=== PATIENT | female | born 1950 | race Caucasian/White ===

== ENCOUNTER → 2016-11-13 | Outpatient (CLI) | payer OTHER | LOC: HYPER 06:42 | DX: E11.621 Type 2 diabetes mellitus with foot ulcer (principal); L97.412 Non-pressure chronic ulcer of right heel and midfoot with fat layer exposed; I25.2 Old myocardial infarction; Z79.84 Long term (current) use of oral hypoglycemic drugs; Z79.4 Long term (current) use of insulin; E11.22 Type 2 diabetes mellitus with diabetic chronic kidney disease; N18.3 Chronic kidney disease, stage 3 (moderate); Z85.42 Personal history of malignant neoplasm of other parts of uterus; Z89.421 Acquired absence of other right toe(s) ==

== ENCOUNTER → 2016-11-19 | Outpatient (CLI) | payer OTHER | LOC: ULTRA 08:58 | DX: E11.621 Type 2 diabetes mellitus with foot ulcer (principal); I73.9 Peripheral vascular disease, unspecified; L97.412 Non-pressure chronic ulcer of right heel and midfoot with fat layer exposed ==

== ENCOUNTER → 2016-11-20 | Outpatient (CLI) | payer OTHER | LOC: HYPER 07:10 | DX: E11.621 Type 2 diabetes mellitus with foot ulcer (principal); L97.412 Non-pressure chronic ulcer of right heel and midfoot with fat layer exposed; E78.5 Hyperlipidemia, unspecified; I25.2 Old myocardial infarction; Z79.4 Long term (current) use of insulin; Z79.84 Long term (current) use of oral hypoglycemic drugs ==

== ENCOUNTER → 2016-11-26 | Outpatient (CLI) | payer OTHER ==
[~2016-11-26] VITALS: Ht 152.4 cm; Wt 102.1 kg
[~2016-11-26] MED LIST: ASPIR 8181 MG PO; BACTRIM DS TAB1 EACH PO; COLACE100 MG PO; DIFLUCAN200 MG PO; GLUCOPHAGE XR500 MG PO; LANTUS100 UNIT/M INJECTION; NOVOLOG100 UNIT/1 INJECTION; PLAVIX 75 MG TA75 M1 PO; ZINC OXIDE56.7 G1 TOP
[2016-11-26 07:11] VITALS: BP 129/37; BP 151/58
[2016-11-26 07:17] LABS: HEMATOCRIT 29.5 % (37.0-47.0); HEMOGLOBIN 9.7 gm/dL (12.0-15.0); MCH 26.3 pg (26.0-34.0); MCHC 32.7 g/dL (28.0-37.0); MCV 80.4 fL (80.0-100.0); RBC 3.68 mil/uL (4.20-5.00); RDW 16.4 % (10.5-14.5)
[2016-11-26 07:25] LABS: CALCIUM 9.8 mg/dL (8.5-10.1); CREATININE 2.1 mg/dL (0.6-1.0); POTASSIUM 5.8 mmol/L (3.5-5.1)
== END | disposition home or self-care (01) ==
LOC: LABMALL 06:29 → SPEC 06:29
PROVIDERS: Nuclear Medicine Nuclear Cardiology
DX: I70.239 Atherosclerosis of native arteries of right leg with ulceration of unspecified site (principal); I25.10 Atherosclerotic heart disease of native coronary artery without angina pectoris; E11.9 Type 2 diabetes mellitus without complications; Z85.42 Personal history of malignant neoplasm of other parts of uterus; E03.9 Hypothyroidism, unspecified; I21.3 ST elevation (STEMI) myocardial infarction of unspecified site; E66.9 Obesity, unspecified; E78.5 Hyperlipidemia, unspecified; I12.9 Hypertensive chronic kidney disease with stage 1 through stage 4 chronic kidney disease, or unspecified chronic kidney disease; N18.9 Chronic kidney disease, unspecified

== ENCOUNTER → 2016-11-27 | Outpatient (CLI) | payer OTHER | LOC: HYPER 07:10 | DX: E11.621 Type 2 diabetes mellitus with foot ulcer (principal); L97.412 Non-pressure chronic ulcer of right heel and midfoot with fat layer exposed; E11.51 Type 2 diabetes mellitus with diabetic peripheral angiopathy without gangrene; E11.22 Type 2 diabetes mellitus with diabetic chronic kidney disease; N18.3 Chronic kidney disease, stage 3 (moderate); L30.9 Dermatitis, unspecified; Z79.84 Long term (current) use of oral hypoglycemic drugs; Z79.4 Long term (current) use of insulin; Z85.828 Personal history of other malignant neoplasm of skin; I25.2 Old myocardial infarction; Z89.421 Acquired absence of other right toe(s) ==

== ENCOUNTER → 2016-11-27 | Outpatient (CLI) | payer OTHER | LOC: MRI 09:30 | DX: L97.412 Non-pressure chronic ulcer of right heel and midfoot with fat layer exposed (principal); E11.621 Type 2 diabetes mellitus with foot ulcer; L30.9 Dermatitis, unspecified ==

== ENCOUNTER 2016-12-09 14:45 | Inpatient (IN) | payer OTHER ==
[~2016-12-09] VITALS: Ht 152.4 cm; Wt 98.8 kg
--- NOTE | ~2016-12-09 | EKG ---
[address] [place] [address] ELECTROCARDIOGRAM REPORT Name: DON SHABAZZ Room #: 350-P ADM IN M.R.#: [id number] Admission: 12/09/16 Attend Phys: Jose Major DO Discharge: Date of : 50 Report #: [id number] THIS REPORT FOR: //name// [facility] Test Date: 2016-12-12 Test Time: 13:11:43 Pat Name: DON SHABAZZ Department: Room: 350 P Gender: F Coremaker Pipe: TRISTIAN : 1950 Requested By: Katie Dhillon Order Number: [id number] MD: Measurements Intervals [place] Rate: 118 P: 75 W[place]: 139 QRS: 91 QRSD: 97 T: QT: 325 QTc: 456 Interpretive Statements Sinus tachycardia Right axis deviation Abnormal R-wave progression, late transition Nonspecific repol abnormality, lateral leads Compared to ECG 12/09/2016 14:56:53 Right-axis deviation now present Early repolarization now present Sinus rhythm no longer present Myocardial infarct finding no longer present [email or web address] By: 1311 1311 Epiphany Epiphany, /EPI
--- NOTE | ~2016-12-09 | HC ---
[facility] [place] [address] CONSULTATION Name: MELEDON Room #: 213-P [facility] IN M.R.#: [id number] Admission: 12/09/16 Attend Phys: Jose Major DO Discharge: 12/16/16 Date of : 50 Report #: [id number] THIS REPORT FOR: //name// CC: CINDY physician/PCP Jose Major DATE OF SERVICE: 12/11/2016 HISTORY OF PRESENT ILLNESS: The patient is a 66-year-old female with a history of diabetes mellitus and decreased vision, admitted with nonresponsive episode. She was noted to have significant hypoglycemia. There was a question of a possible TIA versus hypoglycemia. She also has a right heel wound and Wound Care is involved. She had initial encephalopathy, but CT of the head was negative and she was able to return back to her baseline. She is anemic with hemoglobin 7.0. She also has been diagnosed with urinary tract infection. We are seeing her in Rehabilitation Medicine consultation. PAST MEDICAL HISTORY: Includes insulin-dependent diabetes mellitus, uterine cancer, dyslipidemia, hypothyroidism, WA, incontinent of bowel, hypertension, peripheral vascular disease, foot wound, and right femoral stent. HABITS: No history of tobacco or alcohol abuse. ALLERGIES: No known drug allergies. MEDICATIONS: Please see the full medication listing. SOCIAL HISTORY: Lives with her son and daughter; duplex; no steps; they live in ___, [place]. The patient was premorbidly modified independent with a cane. She ambulated short distances in her home. REVIEW OF SYSTEMS: Did not offer any current complaints of chest pain, shortness of breath or abdominal discomfort. She does have decreased vision, which is premorbid and is noted to be legally blind. She has lower extremity dysesthesias and numbness, consistent with her peripheral neuropathy. PHYSICAL EXAMINATION: GENERAL: She is a 66-year-old female in no obvious distress. VITAL SIGNS: Last recorded temperature 98.7, pulse 79, respirations 14, blood pressure is 120/53, alert, pleasant, oriented. She does have decreased vision as noted above. HEENT: Facies otherwise appeared symmetric. EXTREMITIES: Functional range of motion of both upper extremities. Strength is grade 4-/5. DTRs are trace to 1. In her lower extremities, she does have the heel wound on the right. She is missing a toe. She can otherwise wiggle the rest of her toes. She has definite decreased sensation in a [facility] [address] [place] [address] CONSULTATION Name: DON SHABAZZ Room #: 213-P DIS IN M.R.#: [id number] Admission: 12/09/16 Attend Phys: Jose Major DO Discharge: 12/16/16 Date of : 50 Report #: [id number] distribution with decreased proprioception in her large toes bilaterally. Strength of the lower extremities is probably a grade 4-/5. She was contact guard with sit to stand and did ambulate 30 feet contact guard x 2. ASSESSMENT: A 66-year-old female with the following problem list: 1. Hypoglycemic episode. 2. Encephalopathy, which appears to have returned back to baseline. 3. Urinary tract infection. 4. Right heel wound. Note there are plans underway for surgical debridement. 5. Diabetes mellitus. 6. Hypertension. 7. Legally blind. 8. Unstable gait. 9. Peripheral vascular disease. 10. Obesity. PLAN: At this point in time, the patient is doing reasonably well with ambulating short distances and also does quite well with overall basic ADLs. Both PT and OT indicated that they felt the patient would be able to return directly back to her home setting as she further medically stabilizes. At this point, we will continue to follow along with you regarding her rehab therapy needs. The current goal as noted above would be for the patient to return directly home as she further medically stabilizes with some home healthcare nursing involvement. <ELECTRONICALLY SIGNED> By: Tab Lopez MD 12/17/16 1116 1136 0154 Tab Lopez MD /BALJEET
--- NOTE | ~2016-12-09 | EKG ---
[address] [place] [address] ELECTROCARDIOGRAM REPORT Name: DON SHABAZZ Room #: 350-P ADM IN M.R.#: [id number] Admission: 12/09/16 Attend Phys: Jose Major DO Discharge: Date of : 50 Report #: [id number] THIS REPORT FOR: //name// [facility] ED Test Date: 2016-12-09 Test Time: 14:56:53 Pat Name: DON SHABAZZ Department: Room: 350 Gender: F Metal Room Dental Technician: DEMETRICE : 1950 Requested By: Diana Puga Order Number: [id number] MD: Bipin Jones Measurements Intervals [place] Rate: 85 P: 14 NE: 111 QRS: 48 QRSD: 99 T: 256 QT: 381 QTc: 453 Interpretive Statements Sinus rhythm Borderline short NE interval Inferior infarct, age indeterminate No previous ECG available for comparison Electronically Signed On 12-09-2016 22:45:35 CDT by Bipin Jones [email or web address] <ELECTRONICALLY SIGNED> By: Bipin Jones MD 12/09/16 2245 1456 1456 Bipin Jones MD /NEIL
--- NOTE | ~2016-12-09 | HC ---
[facility] [place] [address] CONSULTATION Name: DON SHABAZZ Room #: 350-P ADM IN M.R.#: [id number] Admission: 12/09/16 Attend Phys: Jose Major DO Discharge: Date of : 50 Report #: [id number] THIS REPORT FOR: //name// CC: CINDY physician/PCP Jose Major DATE OF SERVICE: DECEMBER 10, 2016 REFERRING PROVIDER: Percy Mackey MD REASON FOR CONSULTATION: Right heel wound. HISTORY OF PRESENT ILLNESS: The patient is a 66-year-old female with a past medical history significant for diabetes, peripheral vascular disease status post stenting, who is also legally blind, who presented with a right heel wound of several months' duration that has progressively worsened. The patient also has had complaints of mental status changes as she lives with her son and states she has not been taking much oral intake as of late. The patient has been admitted for her right heel wound and I have been asked to evaluate from a surgical standpoint. PAST MEDICAL HISTORY: Diabetes mellitus, hypothyroidism, hypertension, peripheral vascular disease status post right femoral stenting, long-standing right heel wound, dyslipidemia, prior uterine cancer and a prior myocardial infarction. HOME MEDICATIONS: Zocor, Zestril, gentamicin ointment, Santyl ointment, metformin, insulin, Colace, Bactrim-DS, Plavix and aspirin. ALLERGIES: No known drug allergies. FAMILY HISTORY: Reviewed and noncontributory. SOCIAL HISTORY: The patient does not currently utilize tobacco, alcohol or illicit drugs. REVIEW OF SYSTEMS: GENERAL: The patient denies nocturnal fevers or chills. HEENT: No change in vision, change in hearing. NECK: No swelling or difficulty swallowing. HEART: No chest pain or palpitations. LUNGS: No cough or shortness of breath. ABDOMEN: No nausea, no vomiting. GENITOURINARY: No dysuria or hematuria. ENDOCRINE: No polyuria, polydipsia. HEMATOLOGIC: No history of bleeding or easy bruising. EXTREMITIES: No history of weakness or limited range of motion. [facility] [address] [place] [address] CONSULTATION Name: SIDNEY, VIRGINIA Room #: 350- ADM IN M.R.#: [id number] Admission: 12/09/16 Attend Phys: Jose Major DO Discharge: Date of : 50 Report #: [id number] NEUROLOGIC: No history of syncope or near syncopal episodes. SKIN AND INTEGUMENT: Long-standing history of a right heel wound. PHYSICAL EXAMINATION: VITAL SIGNS: Temperature 97.5, pulse 72, respirations 20, blood pressure 109/45. She stands 5 feet 0 inches tall and weighs 202.8 pounds. GENERAL: She is alert, in no acute distress. HEENT: Normocephalic, atraumatic. She is legally blind. Neck: Supple, without lymphadenopathy. Trachea midline. HEART: Regular rate and rhythm. LUNGS: Clear to auscultation bilaterally. ABDOMEN: Soft, nontender, nondistended. GENITOURINARY: Normal external female genitalia. EXTREMITIES: 1+ edema of the bilateral lower extremities without clubbing or cyanosis otherwise. NEUROLOGIC: Cranial nerves 3 through 12 are grossly intact. PSYCHIATRIC: Normal mood and affect. SKIN AND INTEGUMENT: Right heel wound shows a necrotic fibrotic and nonviable wound throughout the heel, overlying the calcaneus. LABORATORY AND X-RAY DATA: CBC shows white blood cell count of 8.6 thousand; hemoglobin 8.0 and platelets 279,000. Creatinine 1.7. Sed rate elevated at 106. ASSESSMENT AND PLAN: A 66-year-old female with multiple medical problems including diabetes and peripheral vascular disease, who presents with a long-standing right heel wound with necrotic tissue and slough. The patient is also having mental status changes and has been admitted by the hospitalist service. As far as her heel wound is concerned, she definitely necessitates excisional debridement of the nonviable tissue. However, as this is overlying the heel and may necessitate a partial calcanectomy, I will ask Podiatry to assist in evaluation for debridement. Any antibiotics will be deferred to the primary care service and Infectious Disease at this time. I sincerely appreciate this consult. I will follow along and leave any further recommendations in the patient's chart as appropriate. <ELECTRONICALLY SIGNED> By: Cullen Belle MD, FACS 12/13/16 1032 0808 0829 Cullen Belle MD, FACS /nt
--- NOTE | ~2016-12-09 | EKG ---
[address] [place] [address] ELECTROCARDIOGRAM REPORT Name: DON SHABAZZ Room #: 213-P ADM IN M.R.#: [id number] Admission: 12/09/16 Attend Phys: Jose Major DO Discharge: Date of : 50 Report #: [id number] THIS REPORT FOR: //name// [facility] Test Date: 2016-12-13 Test Time: 13:20:29 Pat Name: DON SHABAZZ Department: Room: 213 P Gender: F Roof Promenade Tile Setter: Paige HOOK : 1950 Requested By: Bipin Jones Order Number: [id number] MD: Bipin Jones Measurements Intervals [place] Rate: 80 P: 59 [place]: 140 QRS: 52 QRSD: 97 T: 158 QT: 382 QTc: 441 Interpretive Statements Sinus rhythm Inferior infarct, old Lateral leads are also involved Compared to ECG 12/09/2016 14:56:53 No significant changes Electronically Signed On 12-13-2016 13:35:56 CDT by Bipin Jones [email or web address] <ELECTRONICALLY SIGNED> By: Bipin Jones MD 12/13/16 1335 1320 1320 Bipin Jones MD /NEIL
--- NOTE | ~2016-12-09 | HC ---
[facility] [place] [address] CONSULTATION Name: DON SHABAZZ Room #: 350-P ADM IN M.R.#: [id number] Admission: 12/09/16 Attend Phys: Jose Major DO Discharge: Date of : 50 Report #: [id number] THIS REPORT FOR: //name// CC: CINDY physician/PCP Jose Major REASON FOR CONSULTATION: I was asked to evaluate concerning nonhealing wound to her right heel in the setting of diabetes. HISTORY OF PRESENT ILLNESS: The patient is a 66-year-old with underlying diabetes, peripheral vascular disease. Two months ago, she injured her right heel when she stepped on a nail in her bathroom. Subsequently, she has had a nonhealing wound that has required surgical debridement. She has been seen in the outpatient clinic, [facility]. Presents on 12/09/2016 with hypoglycemic episode and encephalopathy. CT scan of the head showed microvascular disease with no acute change. Concern for TIA. No increased pain or discharge from her right heel. REVIEW OF SYSTEMS: Notes no cough or sputum production. No nausea, vomiting, diarrhea, dysuria or frequency. ALLERGIES: None known. MEDICATIONS: As noted on her MAR, which were reviewed. She was on Bactrim prior to her admission. Now on ceftriaxone. PAST MEDICAL HISTORY: Diabetes, uterine cancer, hyperlipidemia, WA, hypertension, peripheral vascular disease. She has a right femoral stent. FAMILY HISTORY: Noncontributory. SOCIAL HISTORY: Nonsmoker, no significant alcohol intake. PHYSICAL EXAMINATION: VITAL SIGNS: Afebrile, hemodynamically stable. GENERAL: She was alert and cooperative and pleasant, in no acute distress. Oxygen saturation was normal on room air. She was sitting up in her chair, having just completed her dinner. HEENT: Unremarkable other than poor vision. NECK: Supple. LUNGS: Clear. HEART: Regular, without murmur. ABDOMEN: Soft, obese, and nontender. No hepatosplenomegaly or mass. EXTREMITIES: Decreased pulses in both feet with 1+ edema. Right heel wound, fairly extensive with fibrinous debris base of the wound. The wound was deep, full thickness. [facility] [address] [place] [address] CONSULTATION Name: MELEDON Room #: 350-P ADM IN M.R.#: [id number] Admission: 12/09/16 Attend Phys: Jose Major DO Discharge: Date of : 50 Report #: [id number] LABORATORY STUDIES: Hemoglobin 8.0, white count 8.6, platelet count 279,000. Differential unremarkable. Sodium 131, potassium 4.9, bicarbonate 27, creatinine 1.7. Urine culture, gram-negative bacilli with urinalysis showing few wbc's and many bacteria. Chest x-ray, left perihilar infiltrate. IMPRESSION: A 66-year-old with hypoglycemic episode in the setting of nonhealing diabetic foot wound involving the right heel. May have had aspiration pneumonia in addition to this. She has asymptomatic bacteriuria with gram-negative organisms. RECOMMENDATION: We will continue with broad antibiotics to cover both the foot and potential aspiration. We will discuss further with wound care to get up to speed with her outpatient evaluation. Would obtain arterial studies if not done yet. Would do followup chest x-ray and continue with wound care. <ELECTRONICALLY SIGNED> By: Sy Day MD 12/11/16 0856 1756 1901 Sy Day MD /nt
--- NOTE | ~2016-12-09 | 2DMMODE ---
[facility] [address] [place] [address] 2 D/M-MODE ECHOCARDIOGRAM Name: DON SHABAZZ Room #: 350-P ADM IN M.R.#: [id number] Admission: 12/09/16 Attend Phys: Jose Major, Discharge: Date of : 50 Date of Service: 12/12/16 1633 Report #: [id number] THIS REPORT FOR: //name// APPROVED REPORT Study performed: 12/12/2016 14:47:06 EXAM: Comprehensive 2D, Doppler, and color-flow Echocardiogram Patient Location: Bedside Room #: 350 Status: routine BSA: 1.87 HR: 115 bpm BP: 106/54 mmHg Other Information Study Quality: Adequate Indications Diabetes Bradycardia Tachycardia 2D Dimensions RVDd: 38.66 mm LVEF(%): 50.17 (>50%) IVSd: 11.59 (7-11mm) LVOT Diam: 20.85 (18-24mm) LVDd: 52.78 mm PWd: 11.99 (7-11mm) Ascending Ao: 30.79 (22-36mm) LVDs: 39.22 (25-40mm) Aortic Root: 25.76 mm IVC: 22.00 mm Chatterjee's LVEF: 50.17 % Volumes Left Atrial Volume (Systole) Single Plane 4CH: 50.04 mL Single Plane 2CH: 64.76 mL LA ESV Index: 34.00 mL/m2 Aortic Valve AoV Peak Jac.: 1.24 m/s AO Peak Gr.: 6.10 mmHg LVOT Max P.35 mmHg LVOT Max V: 0.92 m/s CEDRIC Vmax: 2.53 cm2 Pulmonary Valve [facility] [address] [place] [address] 2 D/M-MODE ECHOCARDIOGRAM Name: DON SHABAZZ Room #: 350[facility] IN ..#: [id number] Admission: 12/09/16 Attend Phys: Jose Major, Discharge: Date of : 50 Date of Service: 12/12/16 1633 Report #: [id number] PV Peak Jac.: 0.91 m/s PV Peak Gr.: 3.32 mmHg Tricuspid Valve TR Peak Jac.: 3.98 m/s TR Peak Gr.: 63.45 mmHg PA Pressure: 73.00 mmHg Left Ventricle The left ventricle is normal size. Mild concentric left ventricular hypertrophy. The left ventricular systolic function is at the lower limits of normal. LVEF is 50-55%. This study is not technically sufficient to allow evaluation of the LV diastolic function. Right Ventricle The right ventricle is normal size. The right ventricular systolic function is normal. Atria Left atrium is dilated. Right atrium is dilated. Aortic Valve The aortic valve is normal in structure. Aortic valve is calcified. No aortic regurgitation is present. There is no aortic valvular stenosis. Mitral Valve The mitral valve is normal in structure. Mild to moderate mitral regurgitation. No evidence of mitral valve stenosis. Tricuspid Valve The tricuspid valve is normal in structure. There is mild tricuspid regurgitation. Estimated PAP 73 mmHg. There is severe pulmonary hypertension. Pulmonic Valve The pulmonary valve is normal in structure. Trace pulmonic regurgitation. Great Vessels The aortic root is normal in size. IVC is dilated and collapses <50% with inspiration. Pericardium Trace pericardial effusion. <Conclusion> [facility] [address] [place] [address] 2 D/M-MODE [facility]ARDIOGRAM [facility]P [facility] IN M.R.#: [id number] Admission: 12/09/16 Attend Phys: Jose Major, Discharge: Date of : 50 Date of Service: 12/12/16 1633 Report #: [id number] The left ventricle is normal size. LVEF is 50-55%. Left atrium is dilated. Right atrium is dilated. The aortic valve is normal in structure. Aortic valve is calcified. No aortic regurgitation is present. There is no aortic valvular stenosis. The mitral valve is normal in structure. Mild to moderate mitral regurgitation. The tricuspid valve is normal in structure. There is mild tricuspid regurgitation. Estimated PAP 73 mmHg. There is severe pulmonary hypertension. The pulmonary valve is normal in structure. Trace pulmonic regurgitation. <ELECTRONICALLY SIGNED> By: José Miguel Cazares MD 12/12/16 1633 1633 163 José Miguel Cazares MD /INF
--- NOTE | ~2016-12-09 | EKG ---
[address] [address] ELECTROCARDIOGRAM REPORT Name: DON SHABAZZ Room #: 213-P ADM IN M.R.#: [id number] Admission: 12/09/16 Attend Phys: Jose Major DO Discharge: Date of : 50 Report #: [id number] THIS REPORT FOR: //name// [facility] Test Date: 2016-12-14 Test Time: 07:53:20 Pat Name: DON SHABAZZ Department: Room: 213 P Gender: F Brand Executive: IVANIA : 1950 Requested By: Yimi Flores Order Number: [id number] MD: Bipin Jones Measurements Intervals [place] Rate: 90 P: 27 MS: 142 QRS: 20 QRSD: 91 T: 183 QT: 399 QTc: 489 Interpretive Statements Sinus arrhythmia Inferior infarct, old Lateral leads are also involved Compared to ECG 12/13/2016 13:20:29 Sinus rhythm no longer present Myocardial infarct finding still present Electronically Signed On 12-14-2016 15:21:50 CDT by Bipin Jones [email or web address] <ELECTRONICALLY SIGNED> By: Bipin Jones MD 12/14/16 1521 0753 0753 Bipin Jones MD /EPI
[2016-12-09 14:46] VITALS: BP 137/48
[2016-12-09 15:13] LABS: ABSOLUTE NEUTROPHILS 7.6 thou/uL (1.4-8.2); BASOPHILS 0.8 % (0.0-2.0); HEMATOCRIT 26.1 % (37.0-47.0); HEMOGLOBIN 8.5 gm/dL (12.0-15.0); LYMPHOCYTES 25.4 % (24.0-44.0); MCH 26.4 pg (26.0-34.0); MCHC 32.6 g/dL (28.0-37.0); MCV 80.9 fL (80.0-100.0); MONOCYTES 9.2 % (1.0-8.0); PLATELET COUNT 314 thou/uL (150-400); POLYS 60.6 % (36.0-66.0); RBC 3.22 mil/uL (4.20-5.00); RDW 17.8 % (10.5-14.5); WBC 12.5 thou/uL (4.0-11.0)
[2016-12-09 15:14] LABS: MANUAL DIFF NO
[2016-12-09] MEDS ORDERED: SIMVASTATIN40 MG PO (15:18)
[2016-12-09] MEDS ORDERED: LISINOPRIL20 MG PO (15:18)
[2016-12-09] MEDS ORDERED: SODIUM BICARBO650 M3 PO (15:19)
[2016-12-09] MEDS ORDERED: SANTYL OINTMENT30 G1 TOP (15:20)
[2016-12-09] MEDS ORDERED: GENTAMICIN 0.1%15 G2 TOP (15:20)
[2016-12-09] MEDS ORDERED: DOXYCYCLINE 10100 MG PO (15:20)
[2016-12-09 15:21] LABS: ANION GAP 6 mmol/L (7-16); BUN 32 mg/dL (7-18); CALCIUM 9.1 mg/dL (8.5-10.1); CHLORIDE 103 mmol/L (98-107); CO2 28 mmol/L (21-32); CREATININE 1.6 mg/dL (0.6-1.0); GLUCOSE 63 mg/dL (74-106); POTASSIUM 4.7 mmol/L (3.5-5.1); SODIUM 137 mmol/L (136-145)
[2016-12-09 15:25] LABS: APTT 26.8 Seconds (24.5-32.8); INR 1.1; PROTIME 10.8 Seconds (9.3-11.4)
[2016-12-09 15:27] LABS: ALBUMIN 2.8 g/dL (3.4-5.0); ALKALINE PHOSPHATASE 82 U/L (46-116); DIRECT BILIRUBIN < 0.1 mg/dL (<0.1-0.3); SGOT 21 U/L (15-37); SGPT 15 U/L (30-65); TOTAL BILIRUBIN 0.2 mg/dL (<0.1-1.0); TOTAL PROTEIN 7.7 g/dL (6.4-8.2)
[2016-12-09 16:46] LABS: URINE BILIRUBIN NEGATIVE (Negative); URINE BLOOD 3+ (Negative); URINE COLOR YELLOW; URINE GLUCOSE-RANDOM* NEGATIVE (Negative); URINE KETONES NEGATIVE (Negative); URINE LEUKOCYTES-REFLEX 1+ (Negative); URINE PROTEIN (DIPSTICK) 1+ (Negative); URINE UROBILINOGEN 0.2 E.U./dl (0.2-1.0)
[2016-12-09 17:02] LABS: SQUAMOUS 0-3 Few /LPF (0-3); URINE WBC-REFLEX 0-5 Rare /HPF (0-5)
[2016-12-09 17:03] LABS: CRYSTALS None Seen /LPF (None Seen)
[2016-12-09 19:00] VITALS: BP 128/35
[2016-12-09 19:40] VITALS: BP 129/61
[2016-12-09 19:48] VITALS: BP 129/61
[2016-12-10] VITALS: BP 137/44
[2016-12-10 03:40] VITALS: BP 123/58
[2016-12-10 07:41] VITALS: BP 128/53
[2016-12-10 09:14] LABS: BASOPHILS 1.1 % (0.0-2.0); EOSINOPHILS 4.2 % (0.0-3.0); HEMATOCRIT 24.2 % (37.0-47.0); MCH 26.8 pg (26.0-34.0); MCHC 33.2 g/dL (28.0-37.0); MCV 80.7 fL (80.0-100.0); MONOCYTES 7.8 % (1.0-8.0); PLATELET COUNT 279 thou/uL (150-400); POLYS 68.9 % (36.0-66.0); RBC 2.99 mil/uL (4.20-5.00); RDW 17.8 % (10.5-14.5); WBC 8.6 thou/uL (4.0-11.0)
[2016-12-10 09:25] LABS: CREATININE 1.7 mg/dL (0.6-1.0); POTASSIUM 4.9 mmol/L (3.5-5.1)
[2016-12-10 09:26] LABS: MANUAL DIFF NO
[2016-12-10 11:51] VITALS: BP 109/45
[2016-12-10 16:08] VITALS: BP 107/46
[2016-12-10 19:15] VITALS: BP 113/49
[2016-12-11 04:57] VITALS: BP 113/39
[2016-12-11 06:56] LABS: ABSOLUTE NEUTROPHILS 5.4 thou/uL (1.4-8.2); BASOPHILS 0.8 % (0.0-2.0); EOSINOPHILS 5.2 % (0.0-3.0); HEMATOCRIT 21.7 % (37.0-47.0); LYMPHOCYTES 18.7 % (24.0-44.0); MCH 26.3 pg (26.0-34.0); MCHC 32.4 g/dL (28.0-37.0); MCV 81.1 fL (80.0-100.0); MONOCYTES 11.1 % (1.0-8.0); PLATELET COUNT 242 thou/uL (150-400); POLYS 64.2 % (36.0-66.0); RBC 2.67 mil/uL (4.20-5.00); RDW 17.8 % (10.5-14.5); WBC 8.4 thou/uL (4.0-11.0)
[2016-12-11 06:59] LABS: MANUAL DIFF NO
[2016-12-11 07:07] LABS: CALCIUM 8.3 mg/dL (8.5-10.1); CREATININE 1.9 mg/dL (0.6-1.0); MAGNESIUM 1.9 mg/dL (1.8-2.4); POTASSIUM 4.8 mmol/L (3.5-5.1)
[2016-12-11 08:00] VITALS: BP 120/53
[2016-12-11 12:30] VITALS: BP 147/53
[2016-12-11 16:47] VITALS: BP 98/36
[2016-12-11 19:35] VITALS: BP 101/61
[2016-12-12 03:40] VITALS: BP 121/66
[2016-12-12 08:37] VITALS: BP 106/64
[2016-12-12 13:46] LABS: HEMATOCRIT 22.3 % (37.0-47.0); HEMOGLOBIN 7.1 gm/dL (12.0-15.0); MCH 26.6 pg (26.0-34.0); MCV 83.1 fL (80.0-100.0); RBC 2.69 mil/uL (4.20-5.00); RDW 18.4 % (10.5-14.5); WBC 8.4 thou/uL (4.0-11.0)
[2016-12-12 13:55] LABS: ALBUMIN 2.5 g/dL (3.4-5.0); CALCIUM 7.9 mg/dL (8.5-10.1); CREATININE 1.9 mg/dL (0.6-1.0); POTASSIUM 5.1 mmol/L (3.5-5.1); TOTAL BILIRUBIN 0.1 mg/dL (<0.1-1.0); TOTAL PROTEIN 6.3 g/dL (6.4-8.2)
[2016-12-12 15:18] VITALS: BP 113/50
[2016-12-12 19:45] VITALS: BP 100/47
[2016-12-13 03:50] VITALS: BP 110/44
[2016-12-13 04:22] LABS: HEMATOCRIT 22.5 % (37.0-47.0); HEMOGLOBIN 7.3 gm/dL (12.0-15.0); MCH 26.5 pg (26.0-34.0); MCHC 32.3 g/dL (28.0-37.0); RBC 2.74 mil/uL (4.20-5.00); RDW 18.3 % (10.5-14.5); WBC 8.7 thou/uL (4.0-11.0)
[2016-12-13 04:31] LABS: CALCIUM 8.1 mg/dL (8.5-10.1); CREATININE 1.5 mg/dL (0.6-1.0); POTASSIUM 5.7 mmol/L (3.5-5.1)
[2016-12-13 04:38] LABS: % SATURATION 6 % (20-39); IRON 17 ug/dL (50-170); TIBC 268 ug/dL (250-450); UIBC 251 ug/dL
[2016-12-13 11:30] VITALS: BP 145/45
[2016-12-13 15:15] VITALS: BP 133/53
[2016-12-13 19:47] VITALS: BP 127/38
[2016-12-14] VITALS (8 sets, daily range): BP systolic 108–148; BP diastolic 39–69
[2016-12-14 03:30] LABS: HEMOGLOBIN 6.8 gm/dL (12.0-15.0)
[2016-12-14 03:32] LABS: MCH 26.4 pg (26.0-34.0); MCHC 32.4 g/dL (28.0-37.0); MCV 81.5 fL (80.0-100.0); RBC 2.58 mil/uL (4.20-5.00); RDW 18.3 % (10.5-14.5); WBC 9.9 thou/uL (4.0-11.0)
[2016-12-14 03:53] LABS: CALCIUM 8.3 mg/dL (8.5-10.1); CREATININE 1.7 mg/dL (0.6-1.0)
[2016-12-14 04:01] LABS: POTASSIUM 4.7 mmol/L (3.5-5.1)
[2016-12-14 04:03] LABS: TROPONIN-I 6.13 ng/mL (<0.04-0.07)
[2016-12-14 19:33] LABS: HEMATOCRIT 31.1 % (37.0-47.0); HEMOGLOBIN 9.9 gm/dL (12.0-15.0)
[2016-12-15 04:01] VITALS: BP 101/42
[2016-12-15 04:46] LABS: HEMATOCRIT 27.3 % (37.0-47.0); HEMOGLOBIN 9.1 gm/dL (12.0-15.0); MCH 26.8 pg (26.0-34.0); MCHC 33.4 g/dL (28.0-37.0); MCV 80.5 fL (80.0-100.0); RBC 3.39 mil/uL (4.20-5.00); RDW 18.3 % (10.5-14.5); WBC 11.8 thou/uL (4.0-11.0)
[2016-12-15 04:56] LABS: CREATININE 1.6 mg/dL (0.6-1.0); POTASSIUM 4.6 mmol/L (3.5-5.1)
[2016-12-15 07:58] VITALS: BP 113/38
[2016-12-15 10:56] VITALS: BP 81/38
[2016-12-15 15:40] VITALS: BP 127/38
[2016-12-15 19:14] VITALS: BP 135/58
[2016-12-16] VITALS (7 sets, daily range): BP systolic 102–149; BP diastolic 50–52
[2016-12-16 03:45] LABS: HEMATOCRIT 27.5 % (37.0-47.0); MCH 27.1 pg (26.0-34.0); MCHC 32.9 g/dL (28.0-37.0); MCV 82.2 fL (80.0-100.0); RBC 3.34 mil/uL (4.20-5.00); RDW 18.3 % (10.5-14.5); WBC 10.8 thou/uL (4.0-11.0)
[2016-12-16 03:59] LABS: CALCIUM 8.9 mg/dL (8.5-10.1); POTASSIUM 4.7 mmol/L (3.5-5.1)
[2016-12-16] MEDS ORDERED: METOPROLOL SUCC25 M1 PO (15:42)
[2016-12-16] MEDS ORDERED: HYDROCODON-ACE1 EAC7 PO (15:42)
== END 2016-12-16 18:35 | disposition home health service (06) | DRG 622 ==
LOC: ER 14:45 → EROBS 17:19 → 3W 17:19 → 2N 12-13 11:25 → ENTRNSPT 12-16 18:28 → 2N 12-16 18:35
PROVIDERS: Emergency Medicine; Hospitalist; Internal Medicine Cardiovascular Disease; Nurse Practitioner; Nurse Practitioner Adult Health; Nurse Practitioner Gerontology
PROC: 0JBQ0ZZ Excision of Right Foot Subcutaneous Tissue and Fascia, Open Approach (ICD-10-PCS; principal; 2016-12-12)
PROC: B2111ZZ Fluoroscopy of Multiple Coronary Arteries using Low Osmolar Contrast (ICD-10-PCS; 2016-12-13)
PROC: 4A023N7 Measurement of Cardiac Sampling and Pressure, Left Heart, Percutaneous Approach (ICD-10-PCS; 2016-12-13)
PROC: 30233N1 Transfusion of Nonautologous Red Blood Cells into Peripheral Vein, Percutaneous Approach (ICD-10-PCS; 2016-12-14)
DX: E11.621 Type 2 diabetes mellitus with foot ulcer (principal); J69.0 Pneumonitis due to inhalation of food and vomit; G93.41 Metabolic encephalopathy; N39.0 Urinary tract infection, site not specified; Z68.41 Body mass index [BMI] 40.0-44.9, adult; H33.20 Serous retinal detachment, unspecified eye; L97.419 Non-pressure chronic ulcer of right heel and midfoot with unspecified severity; N17.9 Acute kidney failure, unspecified; E11.649 Type 2 diabetes mellitus with hypoglycemia without coma; E11.51 Type 2 diabetes mellitus with diabetic peripheral angiopathy without gangrene; E78.5 Hyperlipidemia, unspecified; E03.9 Hypothyroidism, unspecified; E66.9 Obesity, unspecified; H54.8 Legal blindness, as defined in USA; R26.9 Unspecified abnormalities of gait and mobility; B96.20 Unspecified Escherichia coli [E. coli] as the cause of diseases classified elsewhere; L89.610 Pressure ulcer of right heel, unstageable; L89.620 Pressure ulcer of left heel, unstageable; I95.9 Hypotension, unspecified; D64.9 Anemia, unspecified; N18.9 Chronic kidney disease, unspecified; E11.22 Type 2 diabetes mellitus with diabetic chronic kidney disease; I12.9 Hypertensive chronic kidney disease with stage 1 through stage 4 chronic kidney disease, or unspecified chronic kidney disease; I25.10 Atherosclerotic heart disease of native coronary artery without angina pectoris; I27.20 Pulmonary hypertension, unspecified; I25.2 Old myocardial infarction; Z85.42 Personal history of malignant neoplasm of other parts of uterus; Z79.4 Long term (current) use of insulin; Z79.82 Long term (current) use of aspirin; Z79.84 Long term (current) use of oral hypoglycemic drugs; Z79.899 Other long term (current) drug therapy
CPT/HCPCS: 10081; 10779; 27001; 50010; 50101; 50386; 57091; 62110; 62850; 70005

== ENCOUNTER 2016-12-27 19:47 | Emergency (ER) | payer OTHER ==
[~2016-12-27] VITALS: Ht 152.4 cm; Wt 97.5 kg
[~2016-12-27 19:47] MED LIST changes: +DOXYCYCLINE 10100 MG PO; +GENTAMICIN 0.1%15 G2 TOP; +HYDROCODON-ACE1 EAC7 PO; +LISINOPRIL20 MG PO; +METOPROLOL SUCC25 M1 PO; +SANTYL OINTMENT30 G1 TOP; +SIMVASTATIN40 MG PO; +SODIUM BICARBO650 M3 PO
[2016-12-27] MEDS ORDERED: CEFTRIAXONE40 MG/M1 IV (20:00)
[2016-12-27] MEDS ORDERED: HEPARIN 50500 UNIT/5 IV (20:01)
== END 2016-12-27 21:10 | disposition home or self-care (01) ==
LOC: ER 19:47
DX: Z45.2 Encounter for adjustment and management of vascular access device (principal); E11.9 Type 2 diabetes mellitus without complications; E78.00 Pure hypercholesterolemia, unspecified; E03.9 Hypothyroidism, unspecified; I25.2 Old myocardial infarction; I10 Essential (primary) hypertension; E11.51 Type 2 diabetes mellitus with diabetic peripheral angiopathy without gangrene; Z79.4 Long term (current) use of insulin
CPT/HCPCS: 27001

== ENCOUNTER → 2016-12-31 | Outpatient (CLI) | payer OTHER ==
[~2016-12-31] MED LIST changes: +CEFTRIAXONE40 MG/M1 IV; +HEPARIN 50500 UNIT/5 IV
== END ==
LOC: HYPER
DX: E11.621 Type 2 diabetes mellitus with foot ulcer (principal); L97.412 Non-pressure chronic ulcer of right heel and midfoot with fat layer exposed; E11.51 Type 2 diabetes mellitus with diabetic peripheral angiopathy without gangrene; Z79.4 Long term (current) use of insulin; E11.22 Type 2 diabetes mellitus with diabetic chronic kidney disease; N18.3 Chronic kidney disease, stage 3 (moderate); Z79.84 Long term (current) use of oral hypoglycemic drugs; L30.9 Dermatitis, unspecified; I25.2 Old myocardial infarction

== ENCOUNTER → 2017-01-30 | Outpatient (CLI) | payer OTHER | LOC: HYPER 01-15 06:57 | DX: E11.621 Type 2 diabetes mellitus with foot ulcer (principal); L97.412 Non-pressure chronic ulcer of right heel and midfoot with fat layer exposed; E11.51 Type 2 diabetes mellitus with diabetic peripheral angiopathy without gangrene; Z79.4 Long term (current) use of insulin; E11.22 Type 2 diabetes mellitus with diabetic chronic kidney disease; N18.3 Chronic kidney disease, stage 3 (moderate); Z79.84 Long term (current) use of oral hypoglycemic drugs; L30.9 Dermatitis, unspecified; Z85.42 Personal history of malignant neoplasm of other parts of uterus; I25.2 Old myocardial infarction; E78.5 Hyperlipidemia, unspecified; E02 Subclinical iodine-deficiency hypothyroidism; Z89.421 Acquired absence of other right toe(s) ==

== ENCOUNTER 2017-04-25 14:15 | Inpatient (IN) | payer OTHER ==
[~2017-04-25] VITALS: Ht 121.9 cm; Wt 98.8 kg
--- NOTE | ~2017-04-25 | EKG ---
[address] [address] ELECTROCARDIOGRAM REPORT Name: DON SHABAZZ Room #: 206-P ADM IN M.R.#: [id number] Admission: 04/25/17 Attend Phys: Savanna Eckert MD Discharge: Date of : 50 Report #: [id number] THIS REPORT FOR: //name// [facility] ED Test Date: 2017-04-25 Test Time: 15:06:01 Pat Name: DON SHABAZZ Department: Room: 206 Gender: F Instructional Manager: REID : 1950 Requested By: Lucila Reilly Order Number: [id number] MD: Benito Brooks Measurements Intervals [place] Rate: 68 P: -12 VT: 142 QRS: 60 QRSD: 113 T: 266 QT: 461 QTc: 491 Interpretive Statements Sinus rhythm Borderline intraventricular conduction delay Nonspecific ST segment abnormality Compared to ECG 12/14/2016 07:53:20 Sinus arrhythmia no longer present Myocardial infarct finding no longer present Electronically Signed On 04-26-2017 12:22:09 REGRIND MILL OPERATOR by Benito Brooks [email or web address] <ELECTRONICALLY SIGNED> By: Benito Brooks MD 04/26/17 1222 1506 1506 Benito Brooks MD /NEIL
--- NOTE | ~2017-04-25 | EKG ---
[address] [employer] [place] [address] ELECTROCARDIOGRAM REPORT Name: DON SHABAZZ Room #: 237-P ADM IN M.R.#: [id number] Admission: 04/25/17 Attend Phys: Savanna Eckert MD Discharge: Date of : 50 Report #: [id number] THIS REPORT FOR: //name// [facility] Test Date: 2017-04-30 Test Time: 06:59:01 Pat Name: DON SHABAZZ Department: Room: 237 Gender: F Bobbin Marker: jose : 1950 Requested By: Linh Villanueva Order Number: [id number] MD: Tylor Rivas Measurements Intervals [place] Rate: 65 P: 44 PA: 154 QRS: 28 QRSD: 97 T: -2 QT: 467 QTc: 486 Interpretive Statements Sinus rhythm Nonspecific ST segment abnormality Borderline prolonged QT interval Compared to ECG 04/29/2017 16:41:37 No significant change was found Electronically Signed On 04-30-2017 8:05:31 JANITORIAL MANAGER by Tylor Rivas [email or web address] <ELECTRONICALLY SIGNED> By: Tylor Rivas MD, [facility] 04/30/17 0805 Tylor Rivas MD, [facility] /EPI
--- NOTE | ~2017-04-25 | HC ---
[facility] [place] [address] CONSULTATION Name: DON SHABAZZ Room #: 206-P ADM IN M.R.#: [id number] Admission: 04/25/17 Attend Phys: Savanna Eckert MD Discharge: Date of : 50 Report #: [id number] THIS REPORT FOR: //name// CC: JOSE RAFAEL CAVAZOS Savanna Eckert DATE OF SERVICE: 04/26/2017 REASON FOR CONSULTATION: Profound anemia. CONSULTING PHYSICIAN: Savanna Eckert MD HISTORY OF PRESENT ILLNESS: This is a 66-year-old female with multiple medical problems, including diabetes mellitus type 2, blindness and chronic kidney disease stage 3. She was sent to the Emergency Room by home health nurse as she was found short of breath. On admission, her hemoglobin was 5.6. She has received 2 units transfusion, hemoglobin is 7.8. The daughter is at bedside, who reports that the patient does not have any melena or hematochezia. However, the patient has noted increased vaginal bleeding over the past few weeks. She denies any abdominal pain, nausea, vomiting to me. REVIEW OF SYSTEMS: As noted in HPI, otherwise 10-point review of systems is negative. PAST MEDICAL AND SURGICAL HISTORY: 1. Chronic kidney disease stage 3. 2. Diabetes mellitus type 2. 3. 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 4. Hypertension. 5. Dyslipidemia. 6. Peripheral vascular disease. 7. Right heel decubitus ulcer. ALLERGIES AND MEDICATIONS: Reviewed and noted. SOCIAL HISTORY: Denies tobacco, alcohol or illegal drug use. FAMILY HISTORY: No family member with colorectal cancer or other GI malignancies. PHYSICAL EXAMINATION: GENERAL: Alert, oriented to time, pleasant person, cooperative, appears in moderate distress. VITAL SIGNS: Hemodynamically stable, afebrile. HEAD: Normocephalic, atraumatic head. EYES: Pupils are equal. Sclerae are anicteric. [facility] [address] [place] [address] CONSULTATION Name: DON SHABAZZ Room #: 206- ADM IN R.#: [id number] Admission: 04/25/17 Attend Phys: Savanna Eckert MD Discharge: Date of : 50 Report #: [id number] NECK: Supple, midline trachea, nonpalpable. CARDIOVASCULAR: Regular rhythm. No murmurs. RESPIRATORY: Coarse breath sounds bilaterally. ABDOMEN: Soft, nontender, nondistended. Bowel sounds present. EXTREMITIES: No cyanosis, clubbing, edema. SKIN: Warm and dry. No rashes present. NEUROLOGIC: Alert and oriented x 3. LABORATORY DATA: Hemoglobin 5.7 and then up to 7.8 from 2 units of transfusion. White count 9.1, platelet 353, ferritin 24, creatinine is 2.1. BNP 2500. Troponin is normal. DIAGNOSTIC IMPRESSION AND PLAN: 1. Symptomatic anemia with hemoglobin 5.6. This is acute on chronic anemia, likely secondary to vaginal bleeding. There is no melena or hematochezia reported. She does have heme positive stools. She reports having EGD and colonoscopy at least 10 years ago at [facility]. I do not have those records to review. 2. Pulmonary edema based on chest x-ray. The patient has been started on Lasix. Cardiac echo is pending. 3. Diabetes mellitus type 2 retinopathy and blindness. 4. Chronic kidney disease stage 3. This can explain some of her underlying baseline anemia. RECOMMENDATIONS AND PLAN: 1. Suspect gynecological source of her acute on chronic anemia. 2. There is no urgent indication for endoscopic evaluation, but she warrants upper endoscopy and colonoscopy for heme positive stools. This can be arranged as an inpatient or outpatient depending on clinical course. Thank you for allowing me to participate in the care of the patient. <ELECTRONICALLY SIGNED> By: Raad Luo MD 04/27/17 0913 1307 1405 Raad Luo MD /nt
--- NOTE | ~2017-04-25 | HC ---
[facility] [place] [address] CONSULTATION Name: DON SHABAZZ Room #: [address] [place] [address] IN M.R.#: [id number] Admission: 04/25/17 Attend Phys: Savanna Eckert MD Discharge: 05/02/17 Date of : 50 Report #: [id number] THIS REPORT FOR: //name// CC: JOSE RAFAEL Eckert REFERRING PHYSICIAN: Dr. Eckert. REASON FOR REFERRAL: Acute respiratory failure. HISTORY OF PRESENT ILLNESS: The patient is a 66-year-old white female who is recently intubated and transferred to the ICU following a procedure. A pulmonary consultation was requested. The patient was admitted a few days ago for heme positive stools and anemia. Early today, she was undergoing EGD and colonoscopy. During EGD, the patient became hypoxic, bradycardic. She was felt to have laryngeal spasm. She was intubated and subsequently transferred to ICU. Presently, she is arousable. Hemodynamically, she appears to be stable. Family is present. PAST MEDICAL HISTORY: Notable for chronic kidney disease, diabetes mellitus type 2 with diabetic retinopathy, retinal detachment with being legally blind, hypertension, dyslipidemia, peripheral artery disease, chronic right heel decubitus ulcer, hypothyroidism, coronary artery disease with past history of myocardial infarction, uterine cancer, right calcaneus osteomyelitis. PAST SURGICAL HISTORY: Right femoral stent placement, prior surgery for retinal detachment and cholecystectomy. ALLERGIES: None to medications. HOME MEDICATIONS: Toprol, hydrocodone, Zocor, sodium bicarbonate, heparin, Glucophage, insulin supplements, Colace, Lantus, Plavix, aspirin. FAMILY HISTORY: Noncontributory. SOCIAL HISTORY: No tobacco or alcohol use. REVIEW OF SYSTEMS: Deferred as the patient is intubated. PHYSICAL EXAMINATION: GENERAL: She is presently sedated, but arousable, appears quite anxious. VITAL SIGNS: Temperature is 98 degrees Fahrenheit, pulse is 85, respiratory rate is 18, blood pressure is 146/56 mmHg, saturation 100%. [facility] [address] [place] [address] CONSULTATION Name: FIRTH, VIRGINIA Room #: [facility] IN M.R.#: [id number] Admission: 04/25/17 Attend Phys: Savanna Eckert MD Discharge: 05/02/17 Date of : 50 Report #: [id number] HEENT: Unremarkable, normocephalic, atraumatic. She is orally intubated. NECK: Supple, without any lymphadenopathy or thyromegaly. CHEST: Breath sounds are fair, clear bilaterally. CARDIOVASCULAR: Normal S1, S2. There are no murmurs or gallop. Pulses are 2+/4+ bilaterally. BREASTS: Deferred. ABDOMEN: Soft, nontender, no organomegaly or masses felt. GENITOURINARY: Deferred. RECTAL: Deferred. EXTREMITIES: There is no edema, cyanosis or clubbing. LABORATORY DATA: Portable chest x-ray shows clear lung lynn. ET tube is approximately 3 cm above the ashley. Echocardiogram is notable for normal LV function, mild concentric left ventricular hypertrophy, ejection fraction of 50-55%, oknx-fa-xgtljqtk mitral regurgitation, pulmonary artery systolic pressure around 81 mmHg. Electrolytes: Sodium 135, potassium 3.9, chloride 98, CO2 is 32. BUN is 38. Creatinine is 1.7, which appears to be a baseline around 1.6-2.0. Hemoglobin on admission was 5.3, currently it is 8.3; WBC 9700; platelets are normal. No evidence of bandemia. Albumin 2.6. Arterial blood gas revealed pH 7.48, pCO2 of 41, pO2 264 and FiO2 of 60%. IMPRESSION: 1. Acute hypoxic respiratory failure in this 66-year-old white female. She is felt to have laryngeal spasm. 2. Blood loss anemia, presumed gastrointestinal bleed. She has undergone EGD, which was unremarkable. Colonoscopy was canceled due to respiratory arrest. 3. Pulmonary hypertension, severe, echocardiogram does show evidence of cbht-ly-dcgabrxx mitral regurgitation. This is felt to be related to valvular heart disease. THE pressures are disproportionately high and may need further evaluation or perhaps repeat echocardiogram. Please see comments below. 4. Diabetes mellitus type 2 with diabetic retinopathy with legal blindness. 5. Hypertension. 6. Peripheral artery disease status post femoral stent placement. 7. Chronic right heel decubitus with past history of osteomyelitis. 8. Afbd-ju-wxywyvpg mitral regurgitation. RECOMMENDATION: We will continue mechanical ventilation for now. Sedation p.r.n. Follow up chest x-ray. We also advised advancing ET tube approximately 2 cm as it appears to be high. DVT and GI prophylaxis will be addressed. SCDs will be utilized given recent blood loss anemia. In regards to pulmonary hypertension, I would recommend followup echocardiogram in the near future. If pulmonary artery pressure remains high, she may need further workup and further evaluation. At this time, it is felt to be related [facility] [address] [place] [address] CONSULTATION Name: DON SHABAZZ Room #: 360-P DIS IN M.R.#: [id number] Admission: 04/25/17 Attend Phys: Savanna Eckert MD Discharge: 05/02/17 Date of : 50 Report #: [id number] to valvular heart disease as a cause for pulmonary hypertension. Thank you for this consultation. <ELECTRONICALLY SIGNED> By: Luis Wolfe MD 05/05/17 1409 1749 2200 Luis Wolfe MD /nt
--- NOTE | ~2017-04-25 | 2DMMODE ---
[facility] [address] [place] [address] 2 D/M-MODE ECHOCARDIOGRAM Name: DON SHABAZZ Room #: 206-P ADM IN M.R.#: [id number] Admission: 04/25/17 Attend Phys: Savanna Eckert Discharge: Date of : 50 Date of Service: 04/26/17 1513 Report #: [id number] THIS REPORT FOR: //name// APPROVED REPORT Study performed: 04/26/2017 10:41:26 EXAM: Comprehensive 2D, Doppler, and color-flow Echocardiogram Patient Location: Bedside Room #: 206 Status: on-call BSA: 2.02 HR: 73 bpm BP: 134/40 mmHg Rhythm: NSR Other Information Study Quality: Adequate Risk Factors: Cardiac Risk Factors: DM, Hyperlipidemia, HTN Indications Congestive Heart Failure Dyspnea Renal Disease 2D Dimensions LVEF(%): 62.64 (>50%) IVSd: 13.03 (7-11mm) LVOT Diam: 20.00 (18-24mm) LVDd: 47.12 mm PWd: 11.29 (7-11mm) Ascending Ao: 31.91 (22-36mm) LVDs: 31.19 (25-40mm) Aortic Root: 22.16 mm LV Single Plane 4CH: 47.07 % LV Single Plane 2CH: 47.00 % Chatterjee's LVEF: 47.03 % Biplane EF: 52.0 % Volumes Left Atrial Volume (Systole) Single Plane 4CH: 44.32 mL Single Plane 2CH: 70.05 mL LA ESV Index: 31.00 mL/m2 Mitral Valve [facility] [address] [place] [address] 2 D/M-MODE ECHOCARDIOGRAM Name: MELEDON Room #: 206-P ADM IN M.R.#: [id number] Admission: 04/25/17 Attend Phys: Savanna Eckert Discharge: Date of : 50 Date of Service: 04/26/17 1513 Report #: [id number] E/A Ratio: 1.5 MV Decel. Time: 198.53 ms MV E Max Jac.: 1.41 m/s MV A Jac.: 0.91 m/s MV PHT: 57.57 ms IVRT: 41.52 ms TDI E/Lateral E': 15.67 E/Medial E': 20.14 Medial E' Jac.: 0.07 m/s Lateral E' Jac.: 0.09 m/s Pulmonary Valve PV Peak Jac.: 0.82 m/s PV Peak Gr.: 2.69 mmHg Pulmonary Vein P Vein S: 0.82 m/s P Vein A: 0.31 m/s P Vein D: 0.80 m/s P Vein A Dur.: 107.3 msec P Vein S/D Ratio: 1.02 Tricuspid Valve TR Peak Jac.: 4.21 m/s RAP Estimate: 10.00 mmHg TR Peak Gr.: 70.88 mmHg PA Pressure: 81.00 mmHg Left Ventricle The left ventricle is normal size. There is normal LV segmental wall motion. Mild concentric left ventricular hypertrophy. Left ventricular systolic function is normal. The left ventricular ejection fraction is within the normal range. LVEF is 50-55%. The left ventricular diastolic function is normal. Right Ventricle The right ventricle is normal size. The right ventricular systolic function is normal. Atria The left atrium size is normal. The right atrium size is normal. Aortic Valve The aortic valve is sclerotic. No aortic regurgitation is present. There is no aortic valvular stenosis. Mitral Valve There is mild mitral annular calcification. Mild to moderate mitral [address] [address] 2 D/M-MODE ECHOCARDIOGRAM Name: ALLENTON, VIRGINIA Room #: 206-P ADM IN M.R.#: [id number] Admission: 04/25/17 Attend Phys: Savanna Eckert Discharge: Date of : 50 Date of Service: 04/26/17 1513 Report #: [id number] regurgitation. No evidence of mitral valve stenosis. Tricuspid Valve The tricuspid valve is normal in structure. Moderate tricuspid regurgitation. Pulmonary artery pressure is 81 mmHg. Severe pulmonary hypertension. Pulmonic Valve The pulmonary valve is normal in structure. Trace to mild pulmonic regurgitation. Great Vessels The aortic root is normal in size. IVC is dilated and collapses <50% with inspiration. Pericardium There is no pericardial effusion. <Conclusion> The left ventricle is normal size. Mild concentric left ventricular hypertrophy. LVEF is 50-55%. The left ventricular diastolic function is normal. The right ventricle is normal size. The left atrium size is normal. The aortic valve is sclerotic. There is no aortic valvular stenosis. Mild to moderate mitral regurgitation. Moderate tricuspid regurgitation. Pulmonary artery pressure is 81 mmHg. Severe pulmonary hypertension. Trace to mild pulmonic regurgitation. There is no pericardial effusion. <ELECTRONICALLY SIGNED> By: Yimi Flores MD, FACC 04/26/17 1513 151 151 Yimi Flores MD, FACC /INF
--- NOTE | ~2017-04-25 | P ---
[facility] [place] [address] PROCEDURE REPORT Name: DON SHABAZZ Room #: 360-[facility] IN M.R.#: [id number] Admission: 04/25/17 Attend Phys: Savanna Eckert MD Discharge: Date of : 50 Report #: [id number] THIS REPORT FOR: //name// CC: Roberto Eckert DATE OF SERVICE: 04/29/2017 PROCEDURE PERFORMED: Upper endoscopy. HISTORY OF PRESENT ILLNESS: The patient is a 66-year-old female with a history of anemia and Hemoccult positive stools. The patient also has had vaginal bleeding, which may be the etiology of her anemia. I had a long discussion with the patient and her daughter yesterday. Her last colonoscopy was 10 years ago. She denies any other symptoms. The plan is to proceed with EGD, colonoscopy today. DESCRIPTION OF PROCEDURE: The risks and benefits of the procedure were explained to the patient, those risks including but not limited to bleeding, perforation and the risk of sedation. She understood these risks and gave informed consent. Sedation was given using ketamine and propofol per anesthesia. Next, using a standard [employer] upper endoscope, the scope was placed in the patient's mouth and advanced under direct vision through the esophagus, stomach and into the second portion of the duodenum. The larynx was normal in appearance. The esophagus was normal throughout. The GE junction was normal. Overall, the gastric mucosa was normal. There was a small amount of clear liquid within the stomach. This was aspirated away. The gastric body and antrum were normal. The pylorus was normal and patent. The duodenal bulb, first and second portion were all normal. At this point, the patient did cough somewhat. The scope was withdrawn and the patient had an episode of desaturation. We suspected this may be secondary to laryngeal spasm. A facemask was used to try and oxygenate the patient; however, her O2 sats continued to drop and she became bradycardic. At this point, she was emergently intubated, was given atropine. Her pulse improved. Her oxygenation significantly improved after intubation and her vital signs stabilized. At this point because of this change in her vital signs, the plan was to abort any further endoscopy today, meaning not performed colonoscopy. The patient was then transferred to the ICU and the family was notified. IMPRESSION: 1. Normal upper endoscopy, no evidence of bleeding or stigmata of recent bleeding, no ulcerations or erosions were noted. 2. Respiratory hypoxia and bradycardia during the procedures, suspect this may be secondary to laryngeal spasm. The patient is currently intubated and transferred into the ICU. [address] [address] PROCEDURE REPORT Name: PILGRIM, VIRGINIA Room #: 360-P [facility] IN M.R.#: [id number] Admission: 04/25/17 Attend Phys: Savanna Eckert MD Discharge: Date of : 50 Report #: [id number] PLAN: Will be for pulmonary consultation. Family members were notified and understand. Thank you for allowing me to participate in her care. <ELECTRONICALLY SIGNED> By: Omega Smith MD 05/02/17 1418 1436 1902 Omega Smith MD /nt
--- NOTE | ~2017-04-25 | HC ---
[facility] [place] [address] CONSULTATION Name: DON SHABAZZ Room #: [address] [place] [address] IN M.R.#: [id number] Admission: 04/25/17 Attend Phys: Savanna Eckert MD Discharge: 05/02/17 Date of : 50 Report #: [id number] THIS REPORT FOR: //name// CC: JOSE RAFAEL Eckert REASON FOR CONSULTATION: Bradycardia. HISTORY OF PRESENT ILLNESS: The patient is a patient who I have seen previously in December. At that time, she had undergone induction with MAC anesthesia for a foot surgery and developed hypotension and bradycardia and this resolved. At that time, given her known history of coronary artery disease we recommended that she undergo a cardiac catheterization and she was found to have a 90% RCA lesion that was stented by Dr. Flores with a bare-metal stent. We used a bare-metal stent given her history of anemia. Also, has a history of hypertension, hyperlipidemia, diabetes, peripheral vascular disease, status post right saphenous superior femoral artery stenting. She also has a history of diabetic foot infection, anemia, chronic renal insufficiency and severe pulmonary hypertension with PA pressures in the 80s to 90s. The patient was admitted to the hospital here on the when she presented with shortness of breath, fatigue and was found to have hemoglobin of 5.6. She has been noted to have some vaginal bleeding and some blood in the stools and therefore today underwent upper endoscopy, where she developed hypoxia, bradycardia and hypotension and required intubation and transferring to the ICU. She had a 12-lead EKG here in the ICU, which I reviewed showing sinus rhythm and no evidence of ST changes and some mild T-wave inversions in the inferior leads. Her heart rate is 59 beats per minute. Her telemetry shows no significant arrhythmias. She is intubated. REVIEW OF SYSTEMS: Unable to obtain. PAST MEDICAL HISTORY: Reviewed above. SOCIAL HISTORY: Does not smoke. FAMILY HISTORY: Noncontributory. ALLERGIES: No known drug allergies. HOME MEDICATIONS: Simvastatin, sodium bicarbonate, metformin, insulin, aspirin and Plavix. PHYSICAL EXAMINATION: VITAL SIGNS: Temperature is 35.9, pulse 146/56, pulse is currently in the 60s with normal sats. GENERAL: She is intubated, but she responds to stimulation and nods yes and no. HEENT: Her sclerae are anicteric. [facility] [address] [place] [address] CONSULTATION Name: [place], VIRGINIA Room #: 360-P [facility] IN M.R.#: [id number] Admission: 04/25/17 Attend Phys: Savanna Eckert MD Discharge: 05/02/17 Date of : 50 Report #: [id number] NECK: Supple with no thyromegaly. HEART: Regular rate and rhythm with no murmurs, rubs or gallops. CHEST: Clear to auscultation bilaterally. ABDOMEN: Soft, nontender and nondistended with no hepatosplenomegaly. EXTREMITIES: There is no clubbing, cyanosis or edema. NEUROLOGIC: Cranial nerves unable to assess, but appears to be grossly intact with no focal weakness and she withdraws to pain. LABORATORY DATA: Her white count is 9.7, hemoglobin 8.3 and platelets are 336. Blood gas pH 7.4, pCO2 of 41 and pO2 264. Chemistries: Sodium 135, potassium 3.9, BUN 38 and creatinine 1.7. ProBNP is 2532. Her initial troponin on admission was normal. Her chest x-ray shows stable ET tube placement. There is no significant pulmonary infiltrates on my inspection. Her EKG as I mentioned above shows no ischemic changes. Her telemetry shows normal sinus rhythm. ASSESSMENT AND PLAN: 1. Hypotension and bradycardia. 2. Respiratory arrest. 3. Coronary artery disease. 4. Acute on chronic renal insufficiency. 5. Anemia. 6. Diabetes. 7. Peripheral vascular disease. 8. Severe pulmonary hypertension. SUMMARY: The patient is a 66-year-old who had a respiratory arrest today. There was a period of hypotension and bradycardia associated with this which may have been a vagal mediated. Her EKG thus far shows no evidence of ischemia. Thus, I think her stent is probably remaining patent. A recent echocardiogram this hospitalization shows preserved LV size and function. I do not believe that this bradycardic response was related to a primary arrhythmia issue. It was probably most likely related to the hypoxemia and is vaguely mediated. At this point, we will continue with supportive care. Hopefully, we can get her extubated. Any future procedures under anesthesiology may be slightly higher risk given her severe pulmonary hypertension. We will continue to follow. <ELECTRONICALLY SIGNED> By: Bipin Jones MD 05/16/17 1752 1707 0134 Bipin Jones MD /nt
--- NOTE | ~2017-04-25 | EKG ---
[address] [address] ELECTROCARDIOGRAM REPORT Name: DON SHABAZZ Room #: 237-P ADM IN M.R.#: [id number] Admission: 04/25/17 Attend Phys: Savanna Eckert MD Discharge: Date of : 50 Report #: [id number] THIS REPORT FOR: //name// [facility] Test Date: 2017-04-29 Test Time: 16:41:37 Pat Name: DON SHABAZZ Department: Room: 237 P Gender: F Bait Maker: Umair BAE : 1950 Requested By: Bipin Jones Order Number: [id number] MD: Bipin Jones Measurements Intervals [place] Rate: 59 P: 8 ND: 153 QRS: 50 QRSD: 103 T: -15 QT: 487 QTc: 483 Interpretive Statements Sinus rhythm Compared to ECG 04/25/2017 15:06:01 T-wave similar to prior ST (T wave) deviation no longer present Electronically Signed On 04-29-2017 19:27:38 DOWN FILLER by Bipin Jones [email or web address] <ELECTRONICALLY SIGNED> By: Bipin Jones MD 04/29/17 1927 40 40 Bipin Jones MD /EPI
--- NOTE | ~2017-04-25 | HC ---
[facility] [address] [place] [address] CONSULTATION Name: DON SHABAZZ Room #: 360-P [facility] IN M.R.#: [id number] Admission: 04/25/17 Attend Phys: Savanna Eckert MD Discharge: 05/02/17 Date of : 50 Report #: [id number] THIS REPORT FOR: //name// CC: JOSE RAFAEL Eckert REASON FOR CONSULTATION: Bradycardia. DICTATION ENDS HERE <ELECTRONICALLY SIGNED> By: Bipin Jones MD 05/16/17 1752 1657 221 Bipin Jones MD /nt
--- NOTE | ~2017-04-25 | H ---
[facility] [place] [address] HISTORY AND PHYSICAL Name: DON SHABAZZ Room #: 206-P ADM IN M.R.#: [id number] Admission: 04/25/17 Attend Phys: Savanna Eckert MD Discharge: Date of : 50 Report #: [id number] THIS REPORT FOR: //name// CC: JOSE RAFAEL Eckert DATE OF SERVICE: 04/25/2017 CHIEF COMPLAINT: Progressively worsening shortness of breath. HISTORY OF PRESENT ILLNESS: The patient is a 66-year-old female with multiple medical problems, including diabetes mellitus type 2, blindness, and chronic kidney disease stage 3. The patient was seen by home health nurse, who noticed lower extremity swelling, and suggested the patient to come to the Emergency Room. The patient was found to have pulmonary vascular congestion, as well as anemia, with hemoglobin of 5.6. The patient reports excessive vaginal bleeding during last month or so, that has stopped about a week ago. The patient states that she has been progressively short of breath for 2 weeks. Last few days, shortness of breath has been much worse, even minimal activity causing the patient's symptoms. PAST MEDICAL HISTORY: 1. Chronic kidney disease stage 3. 2. 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 3. Legally blind, due to retinopathy and retinal detachment. 4. Hypertension. 5. Dyslipidemia. 6. Peripheral vascular disease. 7. Right heel decubitus ulcer, status post antibiotic treatment, followed by wound care. Healing well. CURRENT MEDICATIONS: Reviewed and documented in the patient's chart. SOCIAL HISTORY: The patient does not smoke cigarettes, does not drink alcohol. REVIEW OF SYSTEMS: As above in the HPI section, all others negative. PHYSICAL EXAMINATION: GENERAL: The patient is a middle-aged female who looks older than her actual age. The patient is morbidly obese. VITAL SIGNS: Blood pressure is 100/33, heart rate is 73, respirations 18 and temperature is 97.7. HEENT: Pupils are equal. Eye movements are normal. Sclerae are anicteric. NECK: Supple. The patient has no JVD. Oral mucosa is moist. Thyromegaly is not palpated. [facility] [address] [place] [address] HISTORY AND PHYSICAL Name: MELELEVANT, [place]IR[place] Room #: 206-P ADM IN M.R.#: [id number] Admission: 04/25/17 Attend Phys: Savanna Eckert MD Discharge: Date of : 50 Report #: [id number] RESPIRATORY: Chest moves symmetrically with breathing. The patient has fine crackles on bilateral bases. She has no wheezing. CARDIOVASCULAR: The patient has regular rhythm and rate. She has no murmurs, gallops or rubs. GASTROINTESTINAL: Abdomen is soft, nondistended and nontender. Bowel sounds are present. Hepatomegaly or splenomegaly is not palpated. MUSCULOSKELETAL: The patient has 2+ pitting edema on lower extremities. She has no joint deformities. Range of motion is normal. NEUROLOGIC: The patient is alert and oriented x 3. SKIN: Reveals no skin lesions. LABORATORY DATA: On CBC, hemoglobin is 5.7, hematocrit is 18.2, white count is 9.1, platelets 353. MCV is low at 65. Baseline hemoglobin was , in 12/2016. Ferritin level was low at 24. On metabolic profile, electrolytes are normal. Creatinine is at baseline at 2.1. BNP is elevated at 2500. Troponin is normal. Albumin is low at 2.6, that is chronic. On chest x-ray, the patient has bilateral pulmonary congestion. ASSESSMENT AND PLAN: 1. Symptomatic anemia, with hemoglobin of 5.6, acute on chronic. As noted, the patient has baseline anemia, but this is lowest hemoglobin for the patient. Her hemoglobin on 12/2016 was 6.8-9.1. Low MCV indicates iron deficiency. As noted, the patient has heme positive stools. GI team will be consulted for further evaluation. Also, the patient reported excessive vaginal bleeding during last month. We will obtain pelvic ultrasound. Ultrasound can be done as an outpatient, since the patient is not actively bleeding. 2. Swelling, pulmonary edema based on chest x-ray. Congestive heart failure? We will start the patient on Lasix. Obtain cardiac echo. 3. Diabetes mellitus type 2, complicated with retinopathy. Check hemoglobin A1c. Continue insulin. The patient is on Lantus 23 units at night and sliding scale Humalog before meals. We will reduce Lantus dose to 20 units, and use low dose sliding scale for now. 4. Chronic kidney disease stage 3, low GFR. Currently, GFR is 24, which is chronic kidney disease stage 4. We will avoid metformin, and hold lisinopril for now. As noted, blood pressure is low normal. Bicarbonate will be continued unchanged. 5. Deep venous thrombosis prophylaxis. SCDs. Avoid anticoagulation for now. 6. Weakness and debility. Physical therapy. <ELECTRONICALLY SIGNED> By: Savanna Eckert MD 04/28/17 [id number] Savanna Eckert MD /nt
--- NOTE | ~2017-04-25 | 2DMMODE ---
[facility] [address] [place] [address] 2 D/M-MODE ECHOCARDIOGRAM Name: DON SHABAZZ Room #: 237-P ADM IN M.R.#: [id number] Admission: 04/25/17 Attend Phys: Savanna Eckert Discharge: Date of : 50 Date of Service: 04/30/17 0956 Report #: [id number] THIS REPORT FOR: //name// APPROVED REPORT Study performed: 04/30/2017 07:56:23 EXAM: Limited 2D, Doppler, and color-flow Echocardiogram with contrast Patient Location: ICU Room #: 237 Status: routine BSA: 1.68 HR: 85 bpm BP: 95/35 mmHg Other Information Study Quality: Technically Difficult Technically limited study due to body habitus, inability to position patient, patient on ventilator. Indications CAD Echo Enhancing Agent Indication: Endocardial border delineation Agent(s) / Amount(s) Used: Optison 4 cc 2D Dimensions IVC: 18.00 mm Tricuspid Valve TR Peak Jac.: 3.94 m/s RAP Estimate: 10.00 mmHg TR Peak Gr.: 62.00 mmHg PA Pressure: 72.00 mmHg Left Ventricle There is normal LV segmental wall motion. There is normal left ventricular wall thickness. The left ventricular systolic function is normal. The left ventricular ejection fraction is within the normal range. LVEF is 60-65%. Right Ventricle The right ventricle is normal size. The right ventricular systolic function is normal. [facility] [address] [place] [address] 2 D/M-MODE ECHOCARDIOGRAM Name: DON SHABAZZ Room #: 237-P ADM IN M.R.#: [id number] Admission: 04/25/17 Attend Phys: Savanna Eckert Discharge: Date of : 50 Date of Service: 04/30/17 0956 Report #: [id number] Atria Left atrium is dilated. Aortic Valve Aortic valve is mildly calcified. No aortic regurgitation is present. There is no aortic valvular stenosis. Mitral Valve Mild mitral annular calcification. Not well visualized Moderate, eccentric mitral regurgitation. Tricuspid Valve The tricuspid valve is normal in structure. Mild tricuspid regurgitation. PAP is estimated at 70 mmHg. Pulmonic Valve The pulmonary valve is normal in structure. Trace pulmonic regurgitation. Great Vessels IVC is normal in size. Pericardium There is no pericardial effusion. <Conclusion> The left ventricular systolic function is normal. LVEF is 60-65%. Left atrium is dilated. Aortic valve is mildly calcified. No aortic regurgitation or stenosis Mild mitral annular calcification. Not well visualized Moderate, eccentric mitral regurgitation. Mild tricuspid regurgitation. Pulmonary artery pressure estimated at 70 mmHg. There is no pericardial effusion. <ELECTRONICALLY SIGNED> By: Tylor Rivas MD, [facility] 04/30/17 0956 0956 Tylor Rivas MD, FACC /INF
[2017-04-25 14:17] VITALS: BP 100/33
[2017-04-25 15:11] LABS: MCHC 30.8 g/dL (28.0-37.0)
[2017-04-25 15:13] LABS: ABSOLUTE NEUTROPHILS 6.3 thou/uL (1.4-8.2); BASOPHILS 0.9 % (0.0-2.0); EOSINOPHILS 2.2 % (0.0-3.0); LYMPHOCYTES 18.2 % (24.0-44.0); MONOCYTES 9.3 % (1.0-8.0); PLATELET COUNT 353 thou/uL (150-400); POLYS 69.4 % (36.0-66.0); WBC 9.1 thou/uL (4.0-11.0)
[2017-04-25 15:22] LABS: ANION GAP 2 mmol/L (7-16); BUN 54 mg/dL (7-18); CALCIUM 8.6 mg/dL (8.5-10.1); CHLORIDE 103 mmol/L (98-107); CO2 33 mmol/L (21-32); CREATININE 2.1 mg/dL (0.6-1.0); GLUCOSE 106 mg/dL (74-106); HEMATOCRIT 18.2 % (37.0-47.0); HEMOGLOBIN 5.6 gm/dL (12.0-15.0); POTASSIUM 4.5 mmol/L (3.5-5.1); SODIUM 138 mmol/L (136-145)
[2017-04-25 15:32] LABS: ALBUMIN 2.6 g/dL (3.4-5.0); LIPASE 211 U/L (73-393); SGOT 18 U/L (15-37); SGPT 11 U/L (30-65); TOTAL BILIRUBIN 0.3 mg/dL (<0.1-1.0); TOTAL PROTEIN 6.8 g/dL (6.4-8.2); TROPONIN-I < 0.04 ng/mL (<0.06)
[2017-04-25 15:37] LABS: ANISOCYTOSIS 2+; HYPOCHROMASIA 3+; MICROCYTES 2+
[2017-04-25 16:53] VITALS: BP 100/33
[2017-04-25 17:04] LABS: URINE BILIRUBIN NEGATIVE (Negative); URINE BLOOD NEGATIVE (Negative); URINE CLARITY HAZY; URINE COLOR YELLOW; URINE GLUCOSE-RANDOM* NEGATIVE (Negative); URINE KETONES NEGATIVE (Negative); URINE LEUKOCYTES 3+ (Negative); URINE NITRITE NEGATIVE (Negative); URINE PROTEIN (DIPSTICK) TRACE (Negative); URINE UROBILINOGEN 0.2 E.U./dl (0.2-1.0)
[2017-04-25 17:16] LABS: BACTERIA >30 Many /HPF (None Seen); CASTS None Seen /LPF (None Seen); CRYSTALS None Seen /LPF (None Seen); SQUAMOUS 0-3 Few /LPF (0-3); URINE RBC None Seen /HPF (0-2); URINE WBC >25 Many /HPF (0-5)
[2017-04-25 17:44] VITALS: BP 121/34
[2017-04-25 18:09] VITALS: BP 100/27
[2017-04-25 18:33] LABS: HEMATOCRIT 17.4 % (37.0-47.0); HEMOGLOBIN 5.3 gm/dL (12.0-15.0)
[2017-04-25 19:35] VITALS: BP 96/38
[2017-04-25 23:07] LABS: GLYCOHEMOGLOBIN (HGB A1C) 5.6 % (4.8-5.6)
[2017-04-26] VITALS (9 sets, daily range): BP systolic 85–147; BP diastolic 27–56
[2017-04-26 10:15] LABS: HEMATOCRIT 24.9 % (37.0-47.0)
[2017-04-26 10:16] LABS: HEMOGLOBIN 7.8 gm/dL (12.0-15.0)
[2017-04-26 10:56] LABS: CALCIUM 8.7 mg/dL (8.5-10.1); CREATININE 2.2 mg/dL (0.6-1.0); POTASSIUM 4.6 mmol/L (3.5-5.1)
[2017-04-26 11:09] LABS: ABSOLUTE NEUTROPHILS 6.6 thou/uL (1.4-8.2); BASOPHILS 0.8 % (0.0-2.0); EOSINOPHILS 1.7 % (0.0-3.0); LYMPHOCYTES 15.1 % (24.0-44.0); MCH 22.3 pg (26.0-34.0); MCV 69.6 fL (80.0-100.0); MONOCYTES 10.2 % (1.0-8.0); PLATELET COUNT 320 thou/uL (150-400); POLYS 72.2 % (36.0-66.0); RBC 3.49 mil/uL (4.20-5.00); RDW 23.4 % (10.5-14.5); WBC 9.1 thou/uL (4.0-11.0)
[2017-04-26 17:39] LABS: HEMATOCRIT 27.7 % (37.0-47.0); HEMOGLOBIN 8.7 gm/dL (12.0-15.0)
[2017-04-27 03:56] VITALS: BP 113/33
[2017-04-27 04:17] LABS: ABSOLUTE NEUTROPHILS 6.8 thou/uL (1.4-8.2); BASOPHILS 0.7 % (0.0-2.0); EOSINOPHILS 2.7 % (0.0-3.0); HEMOGLOBIN 8.1 gm/dL (12.0-15.0); LYMPHOCYTES 15.8 % (24.0-44.0); MCHC 31.3 g/dL (28.0-37.0); MCV 70.3 fL (80.0-100.0); MONOCYTES 10.8 % (1.0-8.0); PLATELET COUNT 318 thou/uL (150-400); RDW 23.8 % (10.5-14.5); WBC 9.7 thou/uL (4.0-11.0)
[2017-04-27 04:29] LABS: CALCIUM 8.7 mg/dL (8.5-10.1); CREATININE 2.3 mg/dL (0.6-1.0); POTASSIUM 4.1 mmol/L (3.5-5.1)
[2017-04-27 05:20] LABS: ANISOCYTOSIS 3+; HYPOCHROMASIA SLIGHT; POLYCHROMASIA OCCASIONAL; TARGET CELLS OCCASIONAL
[2017-04-27 07:43] VITALS: BP 119/48
[2017-04-27 12:16] VITALS: BP 132/60
[2017-04-27 16:13] VITALS: BP 120/84
[2017-04-27 20:10] VITALS: BP 125/87
[2017-04-28 03:29] VITALS: BP 141/41
[2017-04-28 04:12] LABS: BASOPHILS 0.6 % (0.0-2.0); EOSINOPHILS 2.3 % (0.0-3.0); HEMATOCRIT 25.7 % (37.0-47.0); HEMOGLOBIN 8.2 gm/dL (12.0-15.0); LYMPHOCYTES 16.6 % (24.0-44.0); MCH 22.2 pg (26.0-34.0); MCV 69.4 fL (80.0-100.0); PLATELET COUNT 332 thou/uL (150-400); POLYS 69.5 % (36.0-66.0); RDW 24.4 % (10.5-14.5); WBC 10.1 thou/uL (4.0-11.0)
[2017-04-28 04:27] LABS: CALCIUM 8.3 mg/dL (8.5-10.1); MAGNESIUM 2.2 mg/dL (1.8-2.4); POTASSIUM 3.9 mmol/L (3.5-5.1)
[2017-04-28 04:43] LABS: ANISOCYTOSIS 3+; POLYCHROMASIA 2+
[2017-04-28 04:44] LABS: HYPOCHROMASIA 1+; MICROCYTES 2+; POIKILOCYTOSIS 1+; TARGET CELLS 1+
[2017-04-28 11:25] VITALS: BP 138/41
[2017-04-28 18:01] VITALS: BP 100/23
[2017-04-28 19:32] VITALS: BP 106/82
[2017-04-29] VITALS (22 sets, daily range): BP systolic 81–158; BP diastolic 33–108
[2017-04-29 03:50] LABS: CALCIUM 8.4 mg/dL (8.5-10.1); CREATININE 1.7 mg/dL (0.6-1.0); POTASSIUM 3.9 mmol/L (3.5-5.1)
[2017-04-29 07:15] LABS: HEMATOCRIT 26.5 % (37.0-47.0); HEMOGLOBIN 8.3 gm/dL (12.0-15.0); MCH 21.6 pg (26.0-34.0); MCHC 31.1 g/dL (28.0-37.0); MCV 69.3 fL (80.0-100.0); PLATELET COUNT 336 thou/uL (150-400); RBC 3.83 mil/uL (4.20-5.00); WBC 9.7 thou/uL (4.0-11.0)
[2017-04-29 07:46] LABS: ABSOLUTE NEUTROPHILS 6.3 thou/uL (1.4-8.2)
[2017-04-29 07:47] LABS: ANISOCYTOSIS 3+; HYPOCHROMASIA 2+; MICROCYTES 2+
[2017-04-29 15:54] LABS: BE(vivo) 6.7 mmol/L (-2 to +3); HCO3 30.7 mmol/L (22.0-26.0); PCO2 41.6 mmHg (35.0-45.0); PO2 264.2 mmHg (80.0-100.0); pH 7.486 (7.360-7.450); sO2 99.7 % (92.0-98.0)
[2017-04-30] VITALS (49 sets, daily range): BP systolic 80–128; BP diastolic 27–79
[2017-04-30 04:06] LABS: URINE BILIRUBIN NEGATIVE (Negative); URINE BLOOD 1+ (Negative); URINE CLARITY CLOUDY; URINE COLOR YELLOW; URINE GLUCOSE-RANDOM* NEGATIVE (Negative); URINE KETONES NEGATIVE (Negative); URINE NITRITE-REFLEX NEGATIVE (Negative); URINE PROTEIN (DIPSTICK) NEGATIVE (Negative); URINE SPECIFIC GRAVITY <= 1.005 (1.005-1.035); URINE UROBILINOGEN 0.2 E.U./dl (0.2-1.0)
[2017-04-30 04:07] LABS: URINE LEUKOCYTES-REFLEX 3+ (Negative)
[2017-04-30 04:09] LABS: ABSOLUTE NEUTROPHILS 7.2 thou/uL (1.4-8.2); BASOPHILS 0.4 % (0.0-2.0); EOSINOPHILS 3.7 % (0.0-3.0); HEMATOCRIT 23.8 % (37.0-47.0); HEMOGLOBIN 7.5 gm/dL (12.0-15.0); LYMPHOCYTES 13.2 % (24.0-44.0); MCH 21.7 pg (26.0-34.0); MCHC 31.5 g/dL (28.0-37.0); MONOCYTES 9.8 % (1.0-8.0); PLATELET COUNT 299 thou/uL (150-400); POLYS 72.9 % (36.0-66.0); RBC 3.45 mil/uL (4.20-5.00); RDW 24.5 % (10.5-14.5); WBC 9.8 thou/uL (4.0-11.0)
[2017-04-30 04:21] LABS: ALBUMIN 2.3 g/dL (3.4-5.0); CALCIUM 8.3 mg/dL (8.5-10.1); CREATININE 1.7 mg/dL (0.6-1.0); POTASSIUM 4.2 mmol/L (3.5-5.1); TOTAL BILIRUBIN 0.5 mg/dL (<0.1-1.0); TOTAL PROTEIN 6.1 g/dL (6.4-8.2)
[2017-04-30 04:36] LABS: CASTS None Seen /LPF (None Seen); CRYSTALS None Seen /LPF (None Seen); SQUAMOUS 4-10 Moderate /LPF (0-3)
[2017-04-30 04:37] LABS: BACTERIA-REFLEX >30 Many /HPF (None Seen); URINE RBC 0-2 Rare /HPF (0-2); URINE WBC-REFLEX >25 Many /HPF (0-5)
[2017-04-30 05:12] LABS: HCO3 29.5 mmol/L (22.0-26.0); PCO2 38.4 mmHg (35.0-45.0); PO2 114.1 mmHg (80.0-100.0); pH 7.504 (7.360-7.450); sO2 98.5 % (92.0-98.0)
[2017-04-30 07:40] LABS: ANISOCYTOSIS 3+; HYPOCHROMASIA 2+; MICROCYTES 2+; POLYCHROMASIA OCCASIONAL
[2017-04-30 09:03] LABS: BE(vivo) 6.8 mmol/L (-2 to +3); HCO3 31.5 mmol/L (22.0-26.0); PCO2 46.3 mmHg (35.0-45.0); PO2 115.7 mmHg (80.0-100.0); pH 7.451 (7.360-7.450); sO2 98.3 % (92.0-98.0)
[2017-04-30 13:58] LABS: BE(vivo) 4.2 mmol/L (-2 to +3); HCO3 28.2 mmol/L (22.0-26.0); PCO2 39.6 mmHg (35.0-45.0); sO2 98.5 % (92.0-98.0)
[2017-05-01] VITALS (34 sets, daily range): BP systolic 67–153; BP diastolic 23–79
[2017-05-01 06:36] LABS: ABSOLUTE NEUTROPHILS 7.6 thou/uL (1.4-8.2); BASOPHILS 0.9 % (0.0-2.0); HEMOGLOBIN 7.8 gm/dL (12.0-15.0); LYMPHOCYTES 14.6 % (24.0-44.0); MCH 21.8 pg (26.0-34.0); MCHC 31.1 g/dL (28.0-37.0); MCV 70.3 fL (80.0-100.0); MONOCYTES 11.8 % (1.0-8.0); PLATELET COUNT 304 thou/uL (150-400); POLYS 69.7 % (36.0-66.0); RBC 3.55 mil/uL (4.20-5.00); RDW 24.6 % (10.5-14.5); WBC 10.9 thou/uL (4.0-11.0)
[2017-05-01 06:47] LABS: CALCIUM 8.5 mg/dL (8.5-10.1); CREATININE 1.5 mg/dL (0.6-1.0); POTASSIUM 3.7 mmol/L (3.5-5.1)
[2017-05-01 09:32] LABS: ANISOCYTOSIS 2+; HYPOCHROMASIA 3+; MICROCYTES 2+; PLATELET ESTIMATE NORMAL
[2017-05-02 03:56] LABS: HEMATOCRIT 25.6 % (37.0-47.0); HEMOGLOBIN 7.9 gm/dL (12.0-15.0); MCH 21.9 pg (26.0-34.0); MCHC 30.9 g/dL (28.0-37.0); MCV 70.7 fL (80.0-100.0); PLATELET COUNT 313 thou/uL (150-400); RBC 3.62 mil/uL (4.20-5.00); RDW 25.2 % (10.5-14.5); WBC 9.1 thou/uL (4.0-11.0)
[2017-05-02 04:00] LABS: CALCIUM 8.5 mg/dL (8.5-10.1); CREATININE 1.5 mg/dL (0.6-1.0); POTASSIUM 3.6 mmol/L (3.5-5.1)
[2017-05-02 04:35] VITALS: BP 130/43
[2017-05-02 05:52] LABS: ABSOLUTE NEUTROPHILS 6.4 thou/uL (1.4-8.2); HYPOCHROMASIA 2+
[2017-05-02 05:53] LABS: LARGE PLATELETS OCCASIONAL; MACROCYTES 1+; MICROCYTES 1+; POLYCHROMASIA OCCASIONAL
[2017-05-02 05:54] LABS: ANISOCYTOSIS 3+
[2017-05-02 07:20] VITALS: BP 127/37
[2017-05-02 10:27] VITALS: BP 127/37
== END 2017-05-02 17:36 | disposition home or self-care (01) | DRG 208 ==
LOC: ER 14:15 → EROBS 15:43 → 2N 15:43 → ICU 04-29 13:53 → 3W 05-01 15:06 → ENTRNSPT 05-02 17:20 → 3W 05-02 17:36
PROVIDERS: Hospitalist; Internal Medicine; Internal Medicine Endocrinology, Diabetes & Metabolism; Internal Medicine Pulmonary Disease; Nurse Practitioner Family
DX: J96.01 Acute respiratory failure with hypoxia (principal); E43 Unspecified severe protein-calorie malnutrition; N17.9 Acute kidney failure, unspecified; I13.0 Hypertensive heart and chronic kidney disease with heart failure and stage 1 through stage 4 chronic kidney disease, or unspecified chronic kidney disease; Z68.44 Body mass index [BMI] 60.0-69.9, adult; N93.9 Abnormal uterine and vaginal bleeding, unspecified; E78.5 Hyperlipidemia, unspecified; E03.9 Hypothyroidism, unspecified; E11.51 Type 2 diabetes mellitus with diabetic peripheral angiopathy without gangrene; I50.9 Heart failure, unspecified; N18.3 Chronic kidney disease, stage 3 (moderate); E11.22 Type 2 diabetes mellitus with diabetic chronic kidney disease; H54.8 Legal blindness, as defined in USA; I27.20 Pulmonary hypertension, unspecified; I34.0 Nonrheumatic mitral (valve) insufficiency; I95.9 Hypotension, unspecified; I25.10 Atherosclerotic heart disease of native coronary artery without angina pectoris; D50.0 Iron deficiency anemia secondary to blood loss (chronic); Z85.42 Personal history of malignant neoplasm of other parts of uterus; I25.2 Old myocardial infarction; Z90.49 Acquired absence of other specified parts of digestive tract; Z79.82 Long term (current) use of aspirin; Z79.899 Other long term (current) drug therapy
CPT/HCPCS: 10078; 10081; 10879; 62110; 62900